=== PATIENT | female | born 1950 | race African-American/Black ===

== ENCOUNTER 2016-07-12 11:25 | Emergency (ER) | payer MEDICARE, OTHER | END 2016-07-12 12:34 | disposition home or self-care (01) | LOC: ER 11:25 | DX: S80.02XA Contusion of left knee, initial encounter (principal); S80.01XA Contusion of right knee, initial encounter; S60.222A Contusion of left hand, initial encounter; E11.9 Type 2 diabetes mellitus without complications; I10 Essential (primary) hypertension; H40.9 Unspecified glaucoma; Z90.710 Acquired absence of both cervix and uterus; Z79.4 Long term (current) use of insulin; Z79.899 Other long term (current) drug therapy; W01.0XXA Fall on same level from slipping, tripping and stumbling without subsequent striking against object, initial encounter; Y92.410 Unspecified street and highway as the place of occurrence of the external cause ==